=== PATIENT | male | born 1975 | race Caucasian/White ===

== ENCOUNTER 2021-09-27 09:45 | Emergency (ER) | payer BC, OTHER ==
[~2021-09-27] VITALS: Ht 182.9 cm; Wt 113.4 kg
[2021-09-27 11:24] VITALS: BP 132/87
[2021-09-27] MEDS ORDERED: HYDROcodone-ACET 5/325MG TAB PO ONE (15:00)
[2021-09-27] MEDS ORDERED: ACE3T PO ×2 (15:10→15:13)
[2021-09-27] MEDS ORDERED: CYCL-837 PO (15:10)
== END 2021-09-27 16:13 | disposition home or self-care (01) ==
LOC: ER 09:45
DX: S20.212A Contusion of left front wall of thorax, initial encounter (principal); S70.02XA Contusion of left hip, initial encounter; S90.32XA Contusion of left foot, initial encounter; V28.4XXA Motorcycle driver injured in noncollision transport accident in traffic accident, initial encounter; Y93.89 Activity, other specified; Y92.89 Other specified places as the place of occurrence of the external cause; Y99.8 Other external cause status
CPT/HCPCS: 71250; 72192; 73630